=== PATIENT | female | born 1995 | race Caucasian/White ===

== ENCOUNTER 2019-06-06 15:33 | Emergency (ER) | payer BC, SELFPAY ==
[2019-06-06 15:34] VITALS: BP 144/85; PULSE 116; RESP 18; TEMP 36.7; O2SAT 99; BMI 26.6
--- NOTE | 2019-06-06 17:06 | ED.DCSUM_ITS ---
History of Present Illness Informant: Patient Onset: Today Context: Sudden Onset Timing: Continuous Quality: aching Location: right flank Current Severity: Mild Maximum Severity: Mild Worsened by: nothing Relieved by: nothing Associated Symptoms: none Narrative: 23-year-old female presents to the emergency department with a laceration to her right flank that occurred earlier this morning. She states that her and her boyfriend were drinking alcohol and they do what she describes as playful cutting of each other as foreplay with razor blades and that because he was drunk he accidentally went to deepen she suffered a laceration to her right flank. Bleeding has resolved. She is not having abdominal pain. She denies any other injuries. Her last tetanus was 4 years ago. Prior similar symptoms: No Recent Illness/Hospitalization: No <Mickey Sams - Last Filed: 06/06/19 17:09> <Quincy Guevara - Last Filed: 06/06/19 20:23> Chief Complaint: Laceration Past Medical History Prior records reviewed: Yes Past Medical History: None Surgical History: no surgical history Lives: With Family Smoking Status: Current every day smoker Alcohol: Occasional Drugs: None <Miceky Sams - Last Filed: 06/06/19 17:09> <Quincy Guevara - Last Filed: 06/06/19 20:23> - Allergies and Home Meds Allergies/Adverse Reactions: Allergies No Known Allergies Allergy (Verified 06/06/19 15:34) Primary Care Physician: Debby Fried MD [STAFF PHYSICIAN] - 10 Day for suture removal Review of Systems All systems negative except as indicated General: Denies: Chills, Fever Eyes: Denies: Visual changes - bilaterally, Blurred Vision - bilaterally, Diplopia ENT: Denies: Rhinorrhea, Sore throat Respiratory: Denies: Dyspnea, Cough Gastrointestinal: Denies: Abdominal pain, Nausea, Vomiting, Diarrhea, Melena, Hematochezia Genitourinary: Denies: Dysuria, Hematuria, Frequency Musculoskeletal: Denies: Myalgias, Arthralgias, Neck pain, Back pain, Swelling, Extremity Pain Skin: Reports: Abrasions, Wounds. Denies: Rash, Abscess Neurological: Denies: Headache, Weakness, Parasthesia, Numbness Hematologic: Denies: Easy bruising, Easy bleeding <Mickey Sams - Last Filed: 06/06/19 17:09> Physical Exam Vital Signs/Narrative: Vital Signs Temp Pulse Resp BP Pulse Ox 06/06/19 15:34 98.1 F 116 H 18 144/85 H 99 Inital Vital Signs reviewed: Yes General: Well nourished, Well developed, No Acute Distress Head: Normocephalic, Atraumatic Eyes: Perrl, EOMI ENT: Moist mucous membranes Neck: Supple, Nontender Cardiovascular: Regular rate, Regular rhythm, No murmurs Respiratory: No distress, CTA bilaterally, Chest nontender Abdomen: Soft, Nontender, Nondistended, Normal bowel sounds, No masses Back: Nontender, Normal Inspection Extremities: Nontender, No edema Skin: Normal color, No rash, Trauma - Patient has a 8 cm laceration to her right flank. It is superficial. There is no active bleeding. Patient has no surrounding signs of infection. Abdomen is soft and nontender. Neurological: Alert, Oriented x3 Psychological: Normal affect, Normal Mood <Mickey Sams - Last Filed: 06/06/19 17:09> Diagnostic/Tx/Re-eval - Medical Decision Making Patient's tetanus is already up-to-date. Under sterile conditions with Betadine prep lidocaine was used locally for anesthesia approximately 6 cc in total. The wound was cleansed again with Betadine thoroughly irrigated with 30 cc sterile saline via pressure wash syringe. It was evaluated without evidence of foreign body tendon ligament injury or arterial bleeding. It was closed with a total of 13 simple interrupted sutures. #4-0 nylon. Wound was dressed. Discussed with patient proper wound care patient was given signs of infection to monitor for and advised to follow-up in 7 to 10 days for removal. <Mickey Sams - Last Filed: 06/06/19 17:09> - Medical Decision Making Attending note: Seen and evaluated with senior center manager. Agree with plan and work-up. Performed on [id number] evaluation. Laceration right lateral lower abdomen flank region 4 AM this morning. Play cutting with significant other for fore play. Has done his previous, this is deeper. Tetanus in last 4 years. No anticoagulations. Bleeding controlled. Exam with 8 cm laceration right lower lateral abdomen with no active bleeding. This was repaired by senior center manager as noted above. Wound care discussed and follow-up with PCP for suture removal. <Quincy Guevara - Last Filed: 06/06/19 20:23> ED Disposition <Mickey Sams - Last Filed: 06/06/19 17:09> <Quincy Guevara - Last Filed: 06/06/19 20:23> - Plan for ED Patient: Disposition: Home or Assisted Living Diagnosis: Laceration of abdomen without foreign body Instructions: LACERATION, Trunk, LACERATION, Extrem (Suture, Staple or Tape) Referrals: Debby Fried MD [STAFF PHYSICIAN] - 10 Day for suture removal
== END 2019-06-06 17:22 | disposition home or self-care (01) ==
PROVIDERS: Emergency Provider Physician Assistant Medical
DX: S31.119A Laceration without foreign body of abdominal wall, unspecified quadrant without penetration into peritoneal cavity, initial encounter (principal); Y28.8XXA Contact with other sharp object, undetermined intent, initial encounter; Z72.0 Tobacco use
CPT/HCPCS: 12004; 99283